=== PATIENT | female | born 1950 | race Caucasian/White ===

== ENCOUNTER → 2021-02-01 | Outpatient (CLI) | payer OTHER, MEDICARE ==
[~2021-02-01] MED LIST: CALCIUM +D & M1 EACH PO; CALCIUM 500 +1 EAC5 PO; CO Q-10150 MG PO; OMEGA-3 KRILL1 EACH PO; ROVIN-CF OF TA1 EACH PO; TOPROL XL25 MG PO; XANAX 0.5 MG0.5 M1 PO; ZOCOR 20 MG TAB20 M1 PO
== END ==
LOC: SJCVCIMAG 10:49
PROVIDERS: ATTEND Internal Medicine Cardiovascular Disease
DX: I25.9 Chronic ischemic heart disease, unspecified (principal); R07.9 Chest pain, unspecified; I10 Essential (primary) hypertension; E78.2 Mixed hyperlipidemia; I25.10 Atherosclerotic heart disease of native coronary artery without angina pectoris; R00.2 Palpitations; D04.9 Carcinoma in situ of skin, unspecified; R51.9 Headache, unspecified; G89.29 Other chronic pain; J33.9 Nasal polyp, unspecified; B35.1 Tinea unguium; L40.9 Psoriasis, unspecified; E55.9 Vitamin D deficiency, unspecified; Z79.82 Long term (current) use of aspirin; Z79.899 Other long term (current) drug therapy